=== PATIENT | female | born 1995 | race Caucasian/White ===

== ENCOUNTER 2016-12-01 07:07 | Emergency (ER) | payer BC ==
[2016-12-01 07:16] VITALS: BP 134/76
--- NOTE | 2016-12-01 07:49 | UC ---
ayanna Nagy Timothy, scribed for Hoa Ford MD on 12/01/16 at 0748 . Complaint Female HPI - HPI Summary HPI Summary: Gertrudis Palacio is a 21 yo female presenting to [facility] with 5/10 burning pain with voiding of her bladder and general discomfort since 0200 this morning. She denies any fevers, chills, nausea, vaginal symptoms, hematuria. no back pain. No rash. No vaginal discharge, itching, odor. She states her most recent UTI was 11/2015. She denies any allergies. She has self-medicated with ibuprofen with mild relief. Pthas had good results with Bactrim in the past. She denies any PMHx. Pt medication list reviewed this visit. Pt has an IUD and does not have monthly menses, but states she is not . - History Of Current Complaint Stated Complaint: URINARY ISSUE Time Seen by Provider: 12/01/16 07:42 Hx Obtained From: Patient Hx Last Menstrual Period: iud ?: No Onset/Duration: Sudden Onset, Lasting Hours, Still Present Timing: Constant Severity Initially: Moderate Severity Currently: Moderate Pain Intensity: 5 Pain Scale Used: 0-10 Numeric Character: Burning Aggravating Factor(s): Urination - Allergies/Home Medications Allergies/Adverse Reactions: Allergies Allergy/AdvReac Type Severity Reaction Status Date / Time No Known Allergies Allergy Unverified 12/18/15 11:05 PMH/Surg Hx/FS Hx/Imm Hx Previously Healthy: Yes - Surgical History Surgical History: None - Family History Known Family History: Negative: Cardiac Disease, Hypertension, Diabetes - Social History Occupation: Student Alcohol Use: Rare Substance Use Type: None Smoking Status (MU): Never Smoked Tobacco Review of Systems Constitutional: Negative Skin: Negative Eyes: Negative ENT: Negative Respiratory: Negative Cardiovascular: Negative Gastrointestinal: Negative Genitourinary: Dysuria - burning pain when voiding, Frequency, Other - general discomfort Motor: Negative Neurovascular: Negative Musculoskeletal: Negative Neurological: Negative Psychological: Negative All Other Systems Reviewed And Are Negative: Yes Physical Exam Triage Information Reviewed: Yes Vital Signs: Initial Vital Signs Temp 97.5 F 12/01/16 07:13 Pulse 77 12/01/16 07:13 Resp 18 12/01/16 07:13 BP 134/76 12/01/16 07:13 Pulse Ox 99 12/01/16 07:13 Vital Signs Reviewed: Yes Eye Exam: Normal ENT Exam: Normal ENT: Positive: Hearing grossly normal Dental Exam: Normal Neck exam: Normal Respiratory Exam: Normal Respiratory: Positive: Normal breath sounds, No respiratory distress. Negative : Wheezing Cardiovascular Exam: Normal Cardiovascular: Positive: RRR, No Murmur Abdominal Exam: Normal Abdomen Description: Positive: Nontender, No Organomegaly, Soft. Negative: CVA Tenderness (R), CVA Tenderness (L) Bowel Sounds: Positive: Present Musculoskeletal Exam: Normal Neurological Exam: Normal Psychological Exam: Normal Skin Exam: Normal Complaint Female Dx - Course Course Of Treatment: Gertrudis Palacio is a 21 yo female presenting to [facility] with 5/ 10 burning pain when voiding and general discomfort. Pt was counseled that bactrim will make her skin more sensitive to sunlight. Pt has used bactrim in the past with no complications. Pt was informed that urine culture was collected and will be monitored. Pt was warned that bactrim can sometimes cause orange tears which may stain her contacts. After clinical examination she will be discharged home with appropriate instructions. - Differential Dx/Diagnosis Differential Diagnosis/HQI/PQRI: Urinary Tract Infection Provider Diagnoses: UTI Discharge - Discharge Plan Condition: Stable Disposition: HOME Prescriptions: Phenazopyridine TAB* [Pyridium 100 mg TAB*] 100 mg PO TID #9 tab Phenazopyridine TAB* [Pyridium 100 mg TAB*] 100 mg PO TID #9 tab Sulfamethox/Trimethoprim DS* [Bactrim DS 800/160 TAB*] 1 tab PO BID #14 tab Patient Education Materials: Urinary Tract Infection in Women (ED), Sulfamethoxazole/Trimethoprim (By mouth) Referrals: Babita Taylor MD [Primary Care Provider] - 2 Days Additional Instructions: -Stay well hydrated. Drink plenty of non-alcoholic, non-caffinated beverages -Take antibiotic as prescribed until gone - Your urine will be sent for additional testing. If you need a different a antibiotic, a care software team leader will be contacting you Please follow up with your primary care physician regarding your visit to urgent care today. Return to urgent care or the emergency department with any new or recurring symptoms. The documentation as recorded by the ayanna alston Timothy accurately reflects the service I personally performed and the decisions made by me, Hoa Ford MD.
== END 2016-12-01 08:00 | disposition home or self-care (01) ==
LOC: UCEAST 07:07
DX: N39.0 Urinary tract infection, site not specified (principal)
CPT/HCPCS: 81003; 87077; 87086; 87186; 99212; G0463